=== PATIENT | female | born 1995 | race Two or more races ===

== ENCOUNTER 2024-10-26 08:32 | Emergency (ER) | payer MEDICAID, SELFPAY ==
[2024-10-26 08:49] VITALS: BP 114/74; PULSE 76; RESP 18; TEMP 36.9; O2SAT 100; BMI 20.9
--- NOTE | 2024-10-26 08:59 | XR_ITS ---
Examination: Pelvic ultrasound, transabdominal, complete Technique: Transabdominal ultrasound of the pelvis performed using grayscale imaging Date and time of exam: October 26, 2024 1112 hours Comparison March 19, 2023 INDICATIONS: Pelvic pain beginning 3 days ago FINDINGS: Uterus 7.6 x 3.7 x 5.0 cm retroverted No uterine mass or intrauterine gestation Endometrial stripe 0.9 cm Right ovary 3.5 x 1.6 x 2.4 cm arterial flow Left ovary 3.0 x 2.3 x 2.1 cm arterial flow No fluid in the cul-de-sac IMPRESSION: Negative examination
--- NOTE | 2024-10-26 09:06 | PD.EDABDPN ---
ED Abdominal Pain RME/HPI General Chief Complaint: Abdominal Pain Stated complaint: ABD PAIN FOR 3 DAYS Time seen by provider: 10/26/24 08:33 Arrival date/time: 10/26/24 08:32 28-year-old female presents emergency department complaints of lower pelvic pain dysuria urinary frequency for 3 days. Patient reports she went on a long trip to [place] and held her urine and since then she has been having urinary hesitancy. Denies fever nausea, no vomiting no CVA tenderness.. Source: patient Limitations: no limitations Related Data Previous Rx's ?Medication ?Instructions ?Recorded famotidine 20 mg tablet 20 mg PO QDAY #30 tabs 09/01/23 nitrofurantoin 100 mg PO Q12H 5 days #10 caps 10/26/24 monohydrate/macrocrystals 100 mg capsule (Macrobid) phenazopyridine 100 mg tablet 100 mg PO TID PRN pain 6 doses #6 10/26/24 (Pyridium) tabs tamsulosin 0.4 mg capsule (Flomax) 0.4 mg PO QDAY 5 days #5 caps 10/26/24 Allergies Allergy/AdvReac Type Severity Reaction Status Date / Time No Known Allergies Allergy Verified 10/26/24 08:34 Review of Systems Review of Systems Systems Reviewed: All systems reviewed, normal except as documented Narrative Review of Systems: Gen: No fever, no chills, no weight loss EYES: No discharge, no visual changes, no pain HEENT: No ear pain, no congestion, no sore throat PULM: No shortness of breath, no cough, no congestion CV: No chest pain, no dyspnea on exertion, no palpitations GI: No nausea, no vomiting, no diarrhea, no pain, no constipation :+ frequency, + urgency,? +dysuria Musc/skel: No joint pain, no back pain Skin: No rash? Psyc: No hallucinations, no depression Heme/Lymph: No easy bleeding or bruising tendencies Neuro: No weakness, no headache ED Exam General Limitations: Present no limitations General appearance: Present alert and in no apparent distress Head Head exam: Present atraumatic Eye Eye exam: Present normal appearance, PERRL and EOMI ENT ENT exam: Present normal exam, normal oropharynx and mucous membranes moist Neck Neck exam: Present normal inspection, full ROM and trachea midline Chest Chest inspection: Present normal inspection and symmetric chest wall rise Respiratory Respiratory exam: Present normal lung sounds bilaterally Cardiovascular Cardiovascular exam: Present regular rate, normal rhythm and normal heart sounds Abdominal Exam Abdominal exam: Present soft and normal bowel sounds Extremities Exam Extremities exam: Present normal inspection and full ROM Back Exam Back exam: Present normal inspection and full ROM Neurological Exam Neurological exam: Present alert, oriented X3 and CN II-XII intact Psychiatric Psychiatric exam: Present normal affect and normal mood Skin Skin exam: Present warm, dry, intact and normal color Course Quality Measures none Orders Category Date Time Status US pelvic complete Stat Exams 10/26/24 08:59 Completed HCG Qualitative,Urine Stat Lab 10/26/24 09:35 Completed UA [Urinalysis] Stat Lab 10/26/24 09:35 Completed Vital Signs Vital signs: Vital Signs Temperature 98.4 F 10/26/24 08:49 Pulse Rate 76 10/26/24 08:49 Respiratory Rate 18 10/26/24 08:49 Blood Pressure 114/74 10/26/24 08:49 Pulse Oximetry (%) 100 10/26/24 08:49 Oxygen Delivery Method Room Air 10/26/24 08:49 Abdominal Pain MDM MDM Narrative MDM Narrative:: Young female 28-year-old female here with complaints of urinary symptoms. Patient's urine positive for pyuria will treat accordingly. No systemic symptoms of acute infection or pyelonephritis. Patient started on Macrobid and Pyridium Close follow-up with PCP return to the emergency department this any worsening symptoms and condition. Patient data External records reviewed:: [facility] previous records Clinical information provided by:: patient Social determinants that could affect healthcare access:: none Patient has the following chronic illnesses:: no How is presenting disease/condition affected by chronic disease/condition?: no chronic disease Evaluation data The following diagnostics were reviewed and interpreted by me:: lab results and radiology exam(s) Lab and/or radiology exams considered but not ordered:: no Interpretation Summary: Examination: Pelvic ultrasound, transabdominal, complete Technique: Transabdominal ultrasound of the pelvis performed using grayscale imaging Date and time of exam: October 26, 2024 1112 hours Comparison March 19, 2023 INDICATIONS: Pelvic pain beginning 3 days ago FINDINGS: Uterus 7.6 x 3.7 x 5.0 cm retroverted No uterine mass or intrauterine gestation Endometrial stripe 0.9 cm Right ovary 3.5 x 1.6 x 2.4 cm arterial flow Left ovary 3.0 x 2.3 x 2.1 cm arterial flow No fluid in the cul-de-sac IMPRESSION: Negative examination Urinalysis positive for pyuria. Medications / Prescriptions Medications or Prescriptions considered but not ordered:: no Medication administrations:: no Consultations Consultation(s) initiated? (list below): No Diagnosis Differential diagnosis abdominal pain: abdominal pain, constipation and other (UTI, dysmenorrhea, cystitis, ovarian cyst, endometriosis) Most likely diagnosis given after review of the tests above:: UTI Admission Indicated Admission indicated?: not indicated Explain why admission is indicated or not indicated:: none Admission Request Was there a request for admission?: No Disposition Plan Disposition Plan: Discharge Discharge Attestation Discharge Attestation: The patient and all family members were given an opportunity to ask questions and understood the discharge instructions. Discharge instructions specifically effects, indications for sooner follow up or return to the emergency department, and the expected course of current diagnosis. Patient condition: Stable Discharge Plan Plan Patient Disposition: HOME (Self Care) Prescriptions/Referrals Prescriptions/Med Rec: New nitrofurantoin monohyd/m-cryst [Macrobid] 100 mg capsule 100 mg PO Q12H 5 Days Qty: 10 0RF Rx Instructions: must administer with a meal/food phenazopyridine [Pyridium] 100 mg tablet 100 mg PO TID PRN (Reason: pain) Qty: 6 0RF tamsulosin [Flomax] 0.4 mg capsule 0.4 mg PO QDAY 5 Days Qty: 5 0RF No Action famotidine 20 mg tablet 20 mg PO QDAY Qty: 30 0RF Problem List Clinical Impression: Acute cystitis Patient/Caregiver Discharge Instructions Discharge Activity: activity as tolerated Education Materials: ED CYSTITIS Female Adult Additional Instructions: - Inicie elissa antibi?ticos seg?n las indicaciones. -El piridio para arder al orinar fabio? que rocha orina sea de color naranja, es normal. -Aumentar la ingesta de agua. Seguimiento con rocha m?dico de cabecera en 3 d?as para la revisi?n del urocultivo Regrese al departamento de emergencias si los s?ntomas empeoran o si cambia rocha condici?n. - Please start you antibiotics as directed -Pyridium for burning with urination will make your urine orange it is a normal -Increase water intake. Follow-up with your primary doctor in 3 days for the urine culture review Return to the emergency department this any worsening symptoms or change in condition. Print Language: Thai Stand Alone Forms: Tami Award Info., Patient Portal Info Letter PA/PICKER BOX OPERATOR Supervising Physician PA/PICKER BOX OPERATOR Supervising Physician: Dr Mike
[2024-10-26 09:47] LABS: Collection Type, Urine Clean Catch
[2024-10-26 10:01] LABS: HCG Qualitative,Urine Negative
[2024-10-26 10:09] LABS: Bacteria,Urine Rare; Bilirubin,Urine Negative (Negative); Blood,Urine 3+ (Negative); Clarity,Urine Turbid (Clear/Hazy); Color,Urine Lt-Yellow (Lt Yel-Yel); Glucose, Urine Negative (Negative); Ketones,Urine Negative (Negative); Leukocyte Esterase,Urine Positive (Negative); Nitrite,Urine Positive (Negative); PH,Urine 6.5 (5.0-7.0); Protein,Urine Trace (Neg - Trace); RBC,Urine 53 /hpf (0-3); Specific Gravity,Urine 1.012 (1.001-1.035); Squamous Epithelial Cell,Urine 2 /hpf (0-5); Urobilinogen,Urine Negative mg/dL (0.0-1.0); WBC,Urine 49 /hpf (0-5)
== END 2024-10-26 14:13 | disposition home or self-care (01) ==
PROVIDERS: Nurse Practitioner Primary Care; Emergency Provider Emergency Medicine; PCP Obstetrics & Gynecology
DX: N30.00 Acute cystitis without hematuria (principal)
CPT/HCPCS: 76856; 81001; 81025; 99284